=== PATIENT | male | born 1980 | race Caucasian/White ===

== ENCOUNTER 2016-10-28 22:32 | Emergency (ER) | payer OTHER ==
[~2016-10-28] VITALS: Ht 175.3 cm; Wt 86.2 kg
[~2016-10-28 22:32] MED LIST: ALBUTEROL0.09 MG/A1 INH; AMOXICILLIN500 M1 PO; AMOXIL 875 MG875 MG PO; CLARITHROMYCIN500 MG PO; FLEXERIL10 MG PO; NAPROSYN 500 M500 MG PO; NORCO 325 MG-51 TAB PO; PREDNISONE 20MG20 MG PO; TESSALON PERLE100 MG PO
[2016-10-28 22:36] VITALS: BP 120/72
--- NOTE | 2016-10-28 23:34 | ED SKIN/ALLERGY COMPLAINT ---
History of Present Illness General Chief Complaint: General Adult Stated Complaint: PT HAS RASH HOT TO THE TOUCH ,NUMBESS Source: patient Exam Limitations: no limitations Vital Signs & Intake/Output Vital Signs & Intake/Output Vital Signs Date Time Temp Pulse Resp B/P B/P Pulse O2 O2 Flow FiO2 Mean Ox Delivery Rate 10/286 98.1 78 18 120/72 99 Room Air ED Intake and Output 10/29 0000 10/28 1200 Intake Total Output Total Balance Patient 190 lb Weight Allergies Coded Allergies: NO KNOWN ALLERGIES (01/14/15) Reconcile Medications No Known Home Medications Triage Note: PT STATES THAT HE HAD SWELLING AND PAIN TO L CALF 2 WEEKS AGO THAT WENT AWAY , STATE STHAT NOW FOR THE PAST WEEK HE HAS SWELLING AND PAIN TO R CALF. PT IS PAIN FREE WHEN SITTING BUT STTAES THAT PAIN WHEN HE PUTS PRESSURE Triage Nurses Notes Reviewed? yes Onset: Abrupt Duration: intermittent Timing: recent history Severity: moderate Severity Numbers: 5 HPI: Patient is a 36-year-old male with past medical history of remote herniated lumbar spine discs who states that approximately 2 weeks ago he had a pain and paresthesia symptom to his left Achilles region which has resolved spontaneously however in the past 48 hours patient has been complaining of right Achilles and gastrocnemius paresthesia and pain. Patient denies any mechanism injury. Denies any pedal edema or calf swelling denies any shortness of breath hemoptysis erythema warmth redness worse swelling Patient denies any back injuries recently or back pain (MINI SALAS) Past History Travel History Traveled to [place] past 21 day No Medical History Any Pertinent Medical History? 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 No (MINI SALAS) Review of Systems Review of Systems Constitutional: Reports: no symptoms. EENTM: Reports: no symptoms. Respiratory: Reports: no symptoms. Cardiovascular: Reports: no symptoms. GI: Reports: no symptoms. Genitourinary: Reports: no symptoms. Musculoskeletal: Reports: see HPI. Skin: Reports: no symptoms. Neurological/Psychological: Reports: see HPI, paresthesia. Hematologic/Endocrine: Reports: no symptoms. Immunologic/Allergic: Reports: no symptoms. All Other Systems: Reviewed and Negative (MINI SALAS) Physical Exam Physical Exam General Appearance: no apparent distress, alert, comfortable Comments: Well-developed well-nourished person in no acute distress HEENT: Normal EENT exam, Neck: Supple, no lymphadenopathy, normal range of motion without pain or tenderness Back: Nontender, no CVA tenderness. Cardiovascular: Regular rate and rhythms no murmurs rubs or gallops, normal JVP Respiratory: Chest nontender. No respiratory distress.breath sounds clear to auscultation bilaterally Abdomen: Soft, nontender nondistended, no appreciable organomegaly. Normal bowel sounds. No ascites Extremity: No edema, no calf tenderness to palpation, normal and equal pulses. Bilateral lower extremities myotomes intact DTRs of patella and Achilles intact Decreased sensation noted to right posterior lower leg Normal inspection Neuro: Alert oriented x3, motor sensory normal, Positive straight leg raise Skin: No appreciable rash on exposed skin, skin is warm and dry. Psych: Mood and affect is normal, memory and judgment is normal. (MINI SALAS) Progress Differential Diagnosis: abscess/cellulitis, contact dermatitis, urticaria, aCHILLES STRAIN, dvt, LUMBAR RADICULOPATHY, HERNIATED DISC, Plan of Care: Due to history of present illness and exam findings patient has suspicion of lumbar radiculopathy most likely S1 dermatome pattern where patient has positive straight leg raise on exam Patient was strongly advised to follow up with primary care doctor for further evaluation treatment most likely will require physical therapy and/or MRI studies. Patient had full resisted range of motion noted with lower extremity myotomes and patient had normal steady gait and no concerns of DVT or rash on exam (MINI SALAS) Departure Departure Disposition: HOME OR SELF CARE Condition: Stable Clinical Impression Primary Impression: Lumbar radiculopathy Referrals: CHRISTINA HOYOS (PCP/Family) Additional Instructions: As discussed you have received an intramuscular injection of Decadron in the emergency room for inflammation. Begin [id number] ibuprofen for pain and inflammation. If symptoms worsen return to emergency room. If no better on Monday follow-up with primary care doctor. Begin the exercises described to in the emergency room for your symptoms Departure Forms: Customer Survey General Discharge Information Prescriptions: Current Visit Scripts No Known Home Medications (JOCE NICHOLS,MINI) PA/BANKING OFFICER Co-Sign Statement Statement: ED Attending supervision documentation- [] I saw and evaluated the patient. I have also reviewed all the pertinent lab results and diagnostic results. I agree with the findings and the plan of care as documented in the PA's/BANKING OFFICER's documentation. [x] I have reviewed the ED Record and agree with the PA's/BANKING OFFICER's documentation. [] Additions or exceptions (if any) to the PAs/BANKING OFFICER's note and plan are summarized below: [] (BRYAN RAE,CHAD Mendoza)
== END 2016-10-29 00:40 ==
LOC: ERH 22:32
DX: M54.16 Radiculopathy, lumbar region (principal)
CPT/HCPCS: 96372; J1100

== ENCOUNTER 2017-11-23 03:03 | Emergency (ER) | payer OTHER ==
[~2017-11-23] VITALS: Ht 175.3 cm; Wt 84.8 kg
[2017-11-23 03:30] VITALS: BP 135/82
--- NOTE | 2017-11-23 03:45 | ED GI/GU/ABDOMINAL COMPLAINT ---
History of Present Illness General Chief Complaint: Nausea, Vomiting, Diarrhea Stated Complaint: PT ACTIVLY VOMITING " [employer]" FAMILY THE Source: patient, old records Exam Limitations: no limitations Vital Signs & Intake/Output Vital Signs & Intake/Output Vital Signs Date Time Temp Pulse Resp B/P B/P Pulse O2 O2 Flow FiO2 Mean Ox Delivery Rate 11/23 0330 98.7 86 18 135/82 99 Allergies Coded Allergies: NO KNOWN ALLERGIES (01/14/15) Reconcile Medications Loperamide HCl (Imodium A-D) 2 MG TABLET 0 PO SEE ADMIN CRITERIA PRN diarrhea 1 tab after each loose stool up to 7 per day Ondansetron (Zofran Odt) 4 MG TAB.RAPDIS 1 TAB SL TID PRN n/v Triage Note: PT STATES AFTER EATING AT [employer] AND AFTERWARDS STARTED NOT FEELING WELL, FAMILY THE SAME. PT STATES HE HAS HAD LIQUID STOOL SEVERAL TIMES SINCE DINNER AND VOMITED MULTIPLE TIMES. Triage Nurses Notes Reviewed? yes Onset: Just prior to arrival Duration: hour(s):, continues in ED Timing: recent history Quality/Severity: fullness, severe, vomiting Location: generalized abdomen Radiation: no radiation Activities at Onset: rest Prior Abdominal Problems: none Past Sexual History: Unobtainable at this time Modifying Factors: Worsens With: eating. Associated Symptoms: abdominal pain, diarrhea, loss of appetite, nausea/vomiting , syncope, weakness HPI: Patient reports eating at [employer] along with his family. His spouse and children have had nausea vomiting several hours after eating. He woke with abdominal distention nausea vomiting frequent watery stool. He reports being so weak he collapsed and passed out. He denies fever chills chest pain cough shortness of breath headache dysuria rash bleeding. Past History Travel History Traveled to [place] past 21 day No Medical History Any Pertinent Medical History? 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 No Review of Systems Review of Systems Constitutional: Reports: no symptoms, weakness. EENTM: Reports: no symptoms. Respiratory: Reports: no symptoms. Cardiovascular: Reports: no symptoms. GI: Reports: see HPI, abdominal pain, diarrhea, distention, nausea, vomiting. Genitourinary: Reports: no symptoms. Musculoskeletal: Reports: no symptoms. Skin: Reports: no symptoms. Neurological/Psychological: Reports: see HPI, weakness. Hematologic/Endocrine: Reports: no symptoms. Immunologic/Allergic: Reports: no symptoms. All Other Systems: Reviewed and Negative Physical Exam Physical Exam General Appearance: well developed/nourished, alert, awake, anxious, mild distress Head: atraumatic, normal appearance Eyes: Bilateral: normal appearance, PERRL, EOMI, normal inspection. Ears, Nose, Throat, Mouth: hearing grossly normal, dry mucous membranes Neck: normal inspection, supple, full range of motion, normal alignment Respiratory: normal breath sounds, chest non-tender, no respiratory distress, quiet respiration, lungs clear Cardiovascular: regular rate/rhythm, normal peripheral pulses, norml femoral pulses equa Peripheral Pulses: 4+ carotid (R), 4+ carotid (L) Gastrointestinal: soft, non-tender, no organomegaly, abnormal bowel sounds Male Genitals: normal genitalia Back: normal inspection, normal range of motion Extremities: normal range of motion, no ligament instability Neurologic/Psych: no motor/sensory deficits, awake, alert, oriented x 3, normal gait, normal mood/affect, armature straightener II-XII nml as tested Skin: intact, normal color, warm/dry Core Measures ACS in differential dx? No Sepsis Present: No Sepsis Focused Exam Completed? No Progress Differential Diagnosis: biliary colic, gastritis, pancreatitis, PUD/GERD Plan of Care: Orders Procedure Date/time Status LIPASE 11/23 033 Complete COMPREHENSIVE METABOLIC PANEL 11/23 333 Complete CBC WITHOUT DIFFERENTIAL 11/23 333 Complete Laboratory Tests 11/23/17 0347: Anion Gap 12, Estimated GFR > 60, BUN/Creatinine Ratio 18.3, Glucose 124 H, Calcium 10.1, Total Bilirubin 0.3, AST 26, ALT 39, Alkaline Phosphatase 84, Total Protein 7.9, Albumin 4.7, Globulin 3.2, Albumin/Globulin Ratio 1.5, Lipase 140, CBC w Diff MAN DIFF ORDERED, RBC 5.32, MCV 90.6, MCH 30.6, MCHC 33.8, RDW 13.3, MPV 7.2 L, Gran % 85.8 H, Lymphocytes % 7.8 L, Monocytes % 5.5, Eosinophils % 0.6, Basophils % 0.3, Absolute Granulocytes 13.4 H, Segmented Neutrophils 81 H, Band Neutrophils 2, Absolute Lymphocytes 1.2, Lymphocytes 11 L, Monocytes 6, Absolute Monocytes 0.9 H, Absolute Eosinophils 0.1, Absolute Basophils 0, Platelet Estimate ADEQUATE, Normocytic RBCs VERIFIED, Normochromic RBCs VERIFIED, Fld Total RBCs Counted 100 Initial ED EKG: none Departure Departure Time of Disposition: 604 Disposition: HOME OR SELF CARE Condition: Stable Clinical Impression Primary Impression: Gastroenteritis Secondary Impressions: Syncope and collapse Referrals: Racquel [place] APRN (PCP/Family) Additional Instructions: Clear liquids in small amounts for 12-24 hours until better Departure Forms: Customer Survey General Discharge Information RELEASE- WORK Prescriptions: Current Visit Scripts Ondansetron (Zofran Odt) 1 TAB SL TID PRN n/v #10 TAB Loperamide HCl (Imodium A-D) 0 PO SEE ADMIN CRITERIA PRN diarrhea #24 TAB 1 tab after each loose stool up to 7 per day Current Visit Scripts Ondansetron (Zofran Odt) 1 TAB SL TID PRN n/v #10 TAB Loperamide HCl (Imodium A-D) 0 PO SEE ADMIN CRITERIA PRN diarrhea #24 TAB 1 tab after each loose stool up to 7 per day
[2017-11-23 03:54] LABS: ABSOLUTE BASOPHIL COUNT 0 /CUMM (0.0-0.2); ABSOLUTE EOSINOPHIL COUNT 0.1 /CUMM (0.0-0.7); GRANULOCYTE % 85.8 % (42.2-75.2); MEAN CORPUSCULAR HGB CONC 33.8 G/DL (33.0-37.0)
[2017-11-23 03:56] LABS: ABSOLUTE GRANULOCYTE CT 13.4 /CUMM (1.4-6.5); ABSOLUTE LYMPH COUNT 1.2 /CUMM (1.2-3.4); ABSOLUTE MONOCYTE COUNT 0.9 /CUMM (0.10-0.60); BASOPHIL % 0.3 % (0.0-2.0); EOSINOPHIL % 0.6 % (0-5); HEMATOCRIT 48.2 % (42-52); MEAN CORPUSCULAR HGB 30.6 PG (27.0-31.0); MEAN CORPUSCULAR VOLUME 90.6 FL (80.0-94.0); MEAN PLATELET VOLUME 7.2 FL (7.4-10.4); PLATELET COUNT 318 /CUMM (130-400); RBC DISTRIBUTION WIDTH 13.3 % (11.5-14.5); RED BLOOD CELL CT 5.32 /CUMM (4.70-6.10); WHITE BLOOD CELL COUNT 15.6 /CUMM (4.8-10.8)
[2017-11-23] MEDS ORDERED: ZOFRAN ODT4 M1 SL (04:41)
[2017-11-23] MEDS ORDERED: IMODIUM A-D2 M1 PO (04:41)
== END 2017-11-23 06:19 ==
LOC: ERH 03:03
PROVIDERS: Emergency Medicine
DX: K52.9 Noninfective gastroenteritis and colitis, unspecified (principal); R55 Syncope and collapse
CPT/HCPCS: 96361; 96374; 96375; J2405